=== PATIENT | female | born 1990 | race Caucasian/White ===

== ENCOUNTER 2020-04-08 20:56 | Emergency (ER) | payer MEDICAID, OTHER ==
[~2020-04-08] VITALS: Ht 160 cm; Wt 100.0 kg
[2020-04-08] MEDS ORDERED: KETOROLAC 60MG/2ML VIAL IM ONE (21:30)
[2020-04-08] MEDS ORDERED: HYDROCODONE/ACETAMINOPHEN 5/325MG TABLET PO ONE (22:00)
[2020-04-08 22:07] VITALS: BP 180/90
== END 2020-04-08 23:00 | disposition home or self-care (01) ==
LOC: ER 20:56
DX: S89.82XA Other specified injuries of left lower leg, initial encounter (principal); M25.562 Pain in left knee; W01.0XXA Fall on same level from slipping, tripping and stumbling without subsequent striking against object, initial encounter; Y93.89 Activity, other specified; Y92.89 Other specified places as the place of occurrence of the external cause; Y99.8 Other external cause status
CPT/HCPCS: 73562; 99283; L1830

== ENCOUNTER 2020-12-02 09:44 | Emergency (ER) | payer MEDICAID ==
[~2020-12-02] VITALS: Ht 172.7 cm; Wt 159.0 kg
[2020-12-02 10:54] LABS: CLARITY URINE CLEAR (CLEAR); COLOR URINE YELLOW (YELLOW); KETONES URINE TRACE (NEGATIVE); LEUKOCYTE ESTERASE URINE NEGATIVE (NEGATIVE); NITRITE URINE NEGATIVE (NEGATIVE); OCCULT BLOOD URINE NEGATIVE (NEGATIVE); PROTEIN URINE TRACE (NEGATIVE)
[2020-12-02] MEDS ORDERED: HYDR7CRE2 RC (11:12)
[2020-12-02] MEDS ORDERED: DOCU-138 MT (11:12)
[2020-12-02 11:52] VITALS: BP 146/78
== END 2020-12-02 11:53 | disposition home or self-care (01) ==
LOC: ER 09:44
DX: K64.9 Unspecified hemorrhoids (principal)
CPT/HCPCS: 81003; 81025; 99283